=== PATIENT | male | born 1985 | race African-American/Black ===

== ENCOUNTER 2017-01-15 20:06 | Emergency (ER) | payer OTHER ==
[~2017-01-15] VITALS: Ht 170.2 cm; Wt 79.5 kg
[2017-01-15 20:11] VITALS: Ht 170.2 cm; Wt 79.5 kg
[2017-01-15] MEDS ORDERED: CEPH-443 PO (22:50)
[2017-01-15] MEDS ORDERED: BEN25 PO (22:50)
--- NOTE | 2017-01-15 23:03 | ERD ---
ER Documentation Chief Complaint Date/Time DATE: 01/15/17 TIME: 23:00 Chief Complaint sp insect bite, left hand swelling HPI This is a 31-year-old male presents to the ER after she was bitten by an insect a few days ago to his left hand. Patient believes that he was bitten by either a mosquito or a small spider. Patient stated he started scratching area and then noticed that area was getting more red and swollen. Yesterday he began to see yellow pus. Patient denies any fevers or chills. He denies any numbness or tingling of his hand. He denies any rashes throughout his body. He denies any facial swelling or difficulty in breathing. ROS 12 point review of systems was done, all negative except per HPI. Medications Home Meds Active Scripts Diphenhydramine Hcl* (Benadryl*) 25 Mg Cap, 25 MG PO Q6, #30 CAP Prov:MADELINE,YULIYA C 01/15/17 Cephalexin* (Keflex*) 500 Mg Capsule, 500 MG PO QID for 7 Days, CAP Prov:MADELINEYULIYA C 01/15/17 Allergies Allergies: Coded Allergies: No Known Allergy (Unverified , 01/15/17) PMhx/Soc Medical and Surgical Hx: pt denies Medical Hx, pt denies Surgical Hx Hx Alcohol Use: No Hx Substance Use: Yes (MARIJUANA) Hx Tobacco Use: No Smoking Status: Never smoker Physical Exam Vitals Vital Signs Date Time Temp Pulse Resp B/P Pulse Ox O2 Delivery O2 Flow Rate FiO2 01/15/17 20:11 98.2 67 20 120/68 100 Physical Exam GENERAL: The patient is well developed and appropriate for usual state of health , in no apparent distress. HEENT: Atraumatic. C CHEST: Clear to auscultation bilaterally. There are no rales, wheezes or rhonchi. HEART: Regular rate and rhythm. No murmurs, clicks, rubs or gallops. EXTREMITIES: There is an area of erythema and warmth to the touch to the left dorsal hand. No lymphatic streaking. Sensations are intact to radial ulnar and median nerves. NEURO: Alert and oriented. SKIN: There is no apparent rash or petechia. The skin is warm and dry. Procedures/MDM Differential Diagnosis: dermatitis, allergic urticaria, viral exanthem, insect bite, fungal infectio ,viral exanthem, hand foot mouth disease, , impetigo, cellulitis, abscess, rinku xiao syndrome, meningocemia, necrotizing fasciitis. This is a 31-year-old male presents to the ER after a bug bite, area does appear to be infected as it is warm to the touch and red. Patient will be sent home with Keflex and with Benadryl as there appears to be localized allergic reaction as well. Suspicion for severe allergic reaction is low as there is no angioedema patient does not have any difficulty in breathing. I do not believe that this is a deep space infection as patient is afebrile and well-appearing. Departure Diagnosis: Primary Impression: Bug bite Condition: Stable Patient Instructions: Insect Sting/Bite, Infected Additional Instructions: Call your primary care doctor TOMORROW for an appointment during the next 1-2 days.See the doctor sooner or return here if your condition worsens before your appointment time. YULIYA CORREA Jan 15, 2017 23:02
== END 2017-01-15 23:09 | disposition home or self-care (01) ==
LOC: FTE 20:06
DX: S60.562A Insect bite (nonvenomous) of left hand, initial encounter (principal); W57.XXXA Bitten or stung by nonvenomous insect and other nonvenomous arthropods, initial encounter; Y92.9 Unspecified place or not applicable
CPT/HCPCS: 99283